=== PATIENT | female | born 1945 | race Caucasian/White ===

== ENCOUNTER 2018-07-27 18:25 | Inpatient (IN) | payer OTHER ==
[~2018-07-27] VITALS: Ht 154.9 cm; Wt 88.5 kg
[2018-07-27 18:26] VITALS: BP 205/90
[2018-07-27] MEDS ORDERED: JANUMET XR 1001 EACH PO (18:34)
[2018-07-27] MEDS ORDERED: ARIMIDEX1 MG PO (18:34)
[2018-07-27] MEDS ORDERED: MAGOX 400400 MG PO (18:34)
[2018-07-27] MEDS ORDERED: COZAAR 25 MG TA25 M2 PO (18:35)
[2018-07-27] MEDS ORDERED: SYNTHROID125 MC1 PO (18:35)
[2018-07-27] MEDS ORDERED: TRELEGY ELLIPT1 EACH (18:35)
[2018-07-27] MEDS ORDERED: AMARYL4 MG PO (18:35)
[2018-07-27] MEDS ORDERED: LIPITOR 20 MG T20 M1 PO (18:36)
[2018-07-27] MEDS ORDERED: ASPIR 8181 MG PO (18:36)
[2018-07-27] MEDS ORDERED: HYDROCHLOROTH12.5 M1 PO (18:36)
--- NOTE | 2018-07-27 21:00 | NUR ---
pt arrived to icu unit @ 2036 on 2L o2. pt able to move over to bed on her own. sob with excretion. stated she has had a cough for last 3+weeks none porductive. pt sounds congested. tachy on monitor. bp wnl. paged pulmonary, orders received will keep pt NPO after midnight, possible bronch in A.M. pt denies chest pain, n&v. no pain. family at bedside, updated on care of plain. voiced understanding. will continue to monitor.
[2018-07-27 21:46] LABS: CREATININE 1.2 mg/dL (0.6-1.3); POTASSIUM 4.2 mmol/L (3.5-5.1)
[2018-07-27 21:47] LABS: CALCIUM 9.6 mg/dL (8.5-10.1)
[2018-07-27 21:53] LABS: APTT 27.1 Seconds (25.0-31.3); PROTIME 10.7 Seconds (9.20-11.50)
[2018-07-27 22:00] VITALS: BP 121/66
[2018-07-27 22:00] LABS: TOTAL BILIRUBIN 0.3 mg/dL (<0.1-1.0)
[2018-07-27 22:01] LABS: ALBUMIN 3.2 g/dL (3.4-5.0); TOTAL PROTEIN 7.3 g/dL (6.4-8.2)
[2018-07-27 22:11] LABS: MAGNESIUM 1.5 mg/dL (1.8-2.4); PHOSPHORUS* 3.3 mg/dL (2.5-4.9)
[2018-07-28] VITALS (17 sets, daily range): BP systolic 104–147; BP diastolic 46–79
[2018-07-28 04:05] LABS: HEMATOCRIT 32.8 % (37.0-47.0); HEMOGLOBIN 11.3 gm/dL (12.0-15.0); MCH 29.4 pg (26.0-34.0); MCHC 34.5 g/dL (28.0-37.0); MCV 85.1 fL (80.0-100.0); MPV 8.2 fl. (7.2-11.1); RBC 3.86 mil/uL (4.20-5.00); RDW-CV 13.5 % (10.5-14.5); WBC 7.1 thou/uL (4.0-11.0)
[2018-07-28 04:15] LABS: INR 1.1; PROTIME 10.9 Seconds (9.20-11.50)
[2018-07-28 04:43] LABS: ALBUMIN 2.9 g/dL (3.4-5.0); CALCIUM 9.5 mg/dL (8.5-10.1); CREATININE 1.3 mg/dL (0.6-1.3); MAGNESIUM 1.8 mg/dL (1.8-2.4); POTASSIUM 4.1 mmol/L (3.5-5.1); TOTAL BILIRUBIN 0.4 mg/dL (<0.1-1.0); TOTAL PROTEIN 6.9 g/dL (6.4-8.2)
--- NOTE | 2018-07-28 06:35 | NUR ---
patient progressing towards goals. no acute hemodynamic changes overnight. pt ramains on 2L o2 sat 96-99%. has been able to sleep most of the night. pt has no current concerns at this time. will continue to monitor.
--- NOTE | 2018-07-28 14:58 | NUR ---
07/28 DAYS: Bronch completed at bedside, successful. See chart for procedure and vital signs. Patient post procedure breathing and feels better. x1 dose of IV mag given. Home meds restarted. B.S. high with steriods dose, oral meds restarted and continuing sliding scale for now. Patient is tachy with iv steriods with rates up to 140. IVF decreased to 50ml/hr. Weaned to room air
[2018-07-29] VITALS: BP 135/70
[2018-07-29 03:59] LABS: HEMATOCRIT 32.2 % (37.0-47.0); HEMOGLOBIN 10.8 gm/dL (12.0-15.0); MCH 29.2 pg (26.0-34.0); MCHC 33.6 g/dL (28.0-37.0); MPV 8.5 fl. (7.2-11.1); RBC 3.7 mil/uL (4.20-5.00); RDW-CV 13.8 % (10.5-14.5); WBC 15.8 thou/uL (4.0-11.0)
[2018-07-29 04:00] VITALS: BP 120/70
[2018-07-29 04:28] LABS: CALCIUM 8.8 mg/dL (8.5-10.1); CREATININE 1.4 mg/dL (0.6-1.3); MAGNESIUM 2.1 mg/dL (1.8-2.4); POTASSIUM 4.3 mmol/L (3.5-5.1)
--- NOTE | 2018-07-29 06:22 | NUR ---
pt progressing towards goals. now tele per dr. cruz. pt had no acute hemodynamic changes overnight. she did have a few coughing spasms pt stated she was able to cough up phlegm. pt able to sleep most of the night. pt goals are to be discharged this a.m she states she is ready to go home. will continur to monitor.
[2018-07-29 08:00] VITALS: BP 151/77
[2018-07-29] MEDS ORDERED: ARIMIDEX PO (10:36)
[2018-07-29 10:40] VITALS: BP 120/70
--- NOTE | 2018-07-29 12:02 | NUR ---
ASSESSMENT CHARTED. AFEBRILE. PT TELE STATUS. MORNING MEDS GIVEN. PT DENIES ANY PAIN OR TROUBLE BREATHING AT THIS TIME. PT DISCHARGED TODAY AT 1100. DISCHARGE PAPERWORK GIVEN. ALL QUESTIONS ANSWERED. IV TAKEN OUT. SCRIPTS GIVEN. PT LEFT UNIT VIA WHEELCHAIR AT 1100.
--- NOTE | 2018-07-30 12:06 | PROC ---
[facility] [address] [place] [address] PROCEDURE REPORT Name: ISRRAEL JAMSE Room: [address] IN M.R.#: [id number] Admission: 07/27/18 Attend Phys: Daniel Ca, Discharge: 07/29/18 Date of : 47 Report #: [id number] THIS REPORT FOR: //name// CC: Madyson Smith [employer] Daniel Ca MD DATE OF SERVICE: 07/28/2018 Bronchoscopy note with washings on the foreign body aspiration. ATTENDING PHYSICIAN: Daniel Ca MD. PREOPERATIVE DIAGNOSIS: Right lower lobe foreign body. POSTOPERATIVE DIAGNOSIS: Right lower lobe foreign body. Piece of gum oblong and right lower lobe bronchus extracted after third attempt in total. No intrabronchial lesions. Vocal cords oppose normally. Otherwise, normal anatomy. COMPLICATIONS: None. SPECIMENS: Right lower lobe bronchial wash. CLINICAL SUMMARY: The patient is a 73-year-old female, prior smoker with moderate COPD. She was chewing a piece of gum while talking on the phone yesterday. She had a coughing jag and she aspirated the piece of gum. It was not seen on chest x-ray, was seen on CT of the chest from [facility]. Bronchoscopy is indicated to evaluate for endobronchial lesion to obtain specimens and remove foreign body if present. Indications, benefits, risks of bronchoscopy, possible biopsy were explained to the patient. She understood and agreed. Informed consent was obtained. Prior to procedure, the patient's physical exam showed a few rhonchi, no wheezing. CV shows sinus tachycardia with heart rate of 110 and her sats were fine on 2 liters at 96%. Appropriate verbal timeout was taken as per correct procedure for the correct patient. Premedication consisted of meperidine 50 mg, Robinul 0.1 mg IM and then Versed 4 mg slow IV push pre and intraoperatively in 2 mg increments. O2 sats stayed above 93% throughout the procedure. The patient was edentulous. A flexible fiberoptic bronchoscopy carried out via oral tracheal route since the possibility of extracting a foreign body obstruction was considered. The oropharynx was normal. The vocal cords oppose normally. Trachea and rose were normal. Rose [place] [address] PROCEDURE REPORT Name: ISRRAEL JAMES Room: [address] IN [facility].#: [id number] Admission: 07/27/18 Attend Phys: Daniel Ca, Discharge: 07/29/18 Date of : 47 Report #: [id number] normal without any endobronchial lesions or mucosal abnormalities. Right lung showed a normal right upper lobe and the right lower lobe. At the lateral posterior basilar segment was a foreign body. Appeared to be a piece of gum, it was friable to some degree, but it came out in toto. It was too long for the basket, so we used biopsy forceps. First two attempts, it would get caught up on the vocal cords and go back down the right lower lobe. On the third attempt, we got it up and out into her posterior pharynx and went back in one more time and then took it out of her right parapharyngeal space. It was in total. It was a piece of gum. We did not send it for pathology. We did get a bronchial wash for Gram stain and C and S since she had had a cough for three weeks for culture prior to extracting the piece of gum. The patient did well. Her coughing decreased. She has a little bit of wheezing postoperatively. We will give another set of breathing treatments, probably watch her for a day or so and then, she can be discharged in 24 hours. She can call the office for the sputum results in 4-5 days. We may need to workup for speech language pathology and make sure she does not have chronic aspiration. I told her to slow down to be quite careful if she is chewing gum or chewing anything while she has her dentures in. No complications to the above procedure for bronchial foreign body. <ELECTRONICALLY SIGNED> By: Isabelle Fallon MD 07/30/18 1206 [id number] Dee MD /nt
--- NOTE | 2018-07-30 12:06 | CON ---
[address] [address] CONSULTATION Name: ISRRAEL JAMES Room: [address] IN .R.#: [id number] Admission: 07/27/18 Attend Phys: Daniel Ca, Discharge: 07/29/18 Date of : 47 Report #: [id number] THIS REPORT FOR: //name// CC: Madyson Smith [facility] Daniel Ca MD DATE OF SERVICE: 07/28/2018 ATTENDING PHYSICIAN: Daniel Ca MD. LOCATION: The patient is located in ICU bed 5. INDICATION FOR CONSULTATION: COPD, cough, bronchospasm, possible foreign body in right lower lobe bronchus. CLINICAL SUMMARY: The patient is a 73-year-old female, prior smoker, who was transferred from [place], [place] accepted by Dr. Ca yesterday afternoon. The patient was talking on the phone late yesterday morning, early yesterday afternoon. States she was just talking on the phone. She had a coughing spell, thinks she aspirated a piece of gum. It was a stick of gum. She could not remember what kind it was. She did not think she swallowed it. She has had a mild cough since then. She has been having a cough for about the last 3 weeks without any hemoptysis. She does have a recent history of breast CA over the last year or two that she is on hormonal therapy for. She does have some moderate COPD, but she is not oxygen dependent and she is not steroid dependent. She does take nebulizers at home. She is chronically short of breath going up flight of stairs. She denies having frequent episodes of bronchitis requiring antibiotics or steroids. The patient can talk to me actually in full sentences today and states if she does not take a deep breath, she does not cough. She has been kept n.p.o. for possible fiberoptic bronchoscopy today. She has never had a bronchoscopy before. PAST MEDICAL HISTORY: She has had malignant melanoma removed from her left lower leg. She had a breast cancer in 2017 with a lumpectomy. She has had a previous thyroidectomy. She has had hypertension, diabetes mellitus, moderate COPD for the past 4-5 years. ALLERGIES: She has no known medical allergies. OUTPATIENT MEDICATIONS: Included albuterol nebulizer treatments 2-4 times a day, metformin 1000 mg once daily, Arimidex 1 mg daily. She is on Trelegy Ellipta 100/62.5/25 one puff daily, previously was on Advair, no longer on Advair. Glyburide is 4 mg daily and levothyroxine is mcg daily, losartan is 50 mg p.o. daily, hydrochlorothiazide is 12.5 mg daily and aspirin is [address] [place] [address] CONSULTATION Name: ISRRAEL JAMES Room: [address]#: [id number] Admission: 07/27/18 Attend Phys: Daniel Ca, Discharge: 07/29/18 Date of : 47 Report #: [id number] daily, atorvastatin is 20 mg daily. She is on IV Solu-Medrol. She has received a couple of doses and was on I believe IV antibiotics, Zosyn piperacillin 3.375 grams IV every 8 hours. Has received one dose of Lovenox. Current oxygen dose is 2 liters with sats of 96%. FAMILY HISTORY: Positive for hypertension. SOCIAL HISTORY: She is and lives in outside [place], [place], actually lives in [place], [place] and with her , Cy. She has a prior 50-60-pack year history of smoking. She smoked for 40 years. She quit about 10 years ago. Denies any alcohol or illicit drug use. REVIEW OF SYSTEMS: A 14-point review of systems reviewed and negative except for pertinent positives noted in HPI. States she has had a cough for 3-4 weeks, has not had any hemoptysis. No unexplained weight loss, fever, chills or sweats. She was not drinking when she aspirated the gum and states she has never had problems with aspiration before. PHYSICAL EXAMINATION: GENERAL: A 73-year-old female in no acute distress and talking to me in full sentences without coughing. VITAL SIGNS: Blood pressure was 130/70, heart rate is 84, respirations were 16, and temperature was 36.7 degrees. She is 5 feet 4 inches tall, weight is 88 kilograms or 208 pounds, BMI is 37. Again, saturation on 2 liters is 96%. HEENT: Unremarkable. Pharynx is clear, inducing gag reflex. NECK: Supple, without nodes. No increase in jugular venous pressure. CHEST: Reveals diminished breath sounds without wheeze or rhonchi. There is no unilateral wheeze, right or left. No stridor is noted. No use of accessory muscles. CARDIOVASCULAR: Regular rate and rhythm without murmur, gallop or rub. Heart rate is 88. ABDOMEN: Obese without masses or megaly. EXTREMITIES: SCDs are in place. No cyanosis, clubbing or edema. NEUROLOGIC: Grossly intact. She moves all fours to commands and she can move around the bed without problems. LABORATORY DATA: From 07/28/2018 shows hemoglobin 11, white count 7100, platelets are 224,000, with previously normal differential. Sodium is 138, potassium is 4.1, chloride is 103, BUN is 18, creatinine 1.3, glucose is between 284 and 367. Magnesium was slightly low at 1.5, is now repeat at 1.8. LFTs within normal limits. Alkaline phosphatase slightly elevated at 174, then 120 and albumin is 2.9. No ABGs noted. Chest x-ray from this morning just shows mild COPD and hyperinflation. I do not see any lung masses or particulate matter in the right or left mainstem. I did look at the film from [facility]. We did finally get it to upload on our computer PAC system. On the mediastinal windows, there are no masses or lesions. [facility] [place] [address] CONSULTATION Name: ISRRAEL JAMES Room: [address] [place] [facility].#: [id number] Admission: 07/27/18 Attend Phys: Daniel Ca, Discharge: 07/29/18 Date of : 47 Report #: [id number] hyperinflation is noted. No mediastinal adenopathy. Heart size was normal. When I checked to the lung windows, there appears to be either a mucus plug or possibly a foreign body or piece of gum in the right mainstem going down to the right lower lobe bronchus at the bifurcation there. It is about 3-4 cm distal from the issac. Left lung was clear and the left bronchus was opened. No mass lesions or tumors otherwise were noted. IMPRESSION: 1. Possible foreign body aspiration in the right lower lobe mainstem bronchus, could be a piece of gum, could be mucus plugging. 2. Moderate chronic obstructive pulmonary disease, not severe. 3. Episode of aspiration, etiology unclear, may need a swallow study and further workup. 4. History of breast carcinoma, status post lumpectomy on hormonal therapy. PLAN: At this time, the patient is edentulous. We will take out her upper dentures and may use a bite block. We will go orally route for bronchoscopy in case we need to pull the piece of gum out of the throat. Much easier than doing it trying to pull it out through the nasopharynx. Hopefully, we will see and get a basket or biopsy forceps if it is a piece of gum. If it is a mucus plug, we will try and break it up and get it to come out. She has had previous cough and may check a sputum culture while we were down there and make sure that is stable. She has had no history of TB or other fungal diseases from what she has told me. We will do the bronchoscopy here in the ICU in the next hour or two this Sunday morning and if it proves to be difficult, may have to transfer to a higher level including either [facility] and/or at [facility]. Hopefully, we can take care of her issues here and then caution her about chewing gum and talking too much at the same time. This has been a 37-minute critical care consult. <ELECTRONICALLY SIGNED> By: Isabelle Fallon MD 07/30/18 1206 [id number] Dee MD /rhianna
== END 2018-07-29 11:15 | disposition home or self-care (01) | DRG 205 ==
LOC: M.ERS 18:25 → M.TBA-ER 18:48 → M.ICU 18:48
PROVIDERS: Internal Medicine Critical Care Medicine; ADMIT Family Medicine
PROC: 0BC68ZZ Extirpation of Matter from Right Lower Lobe Bronchus, Via Natural or Artificial Opening Endoscopic (ICD-10-PCS; principal; 2018-07-28)
DX: T17.590A Other foreign object in bronchus causing asphyxiation, initial encounter (principal); R65.11 Systemic inflammatory response syndrome (SIRS) of non-infectious origin with acute organ dysfunction; N17.9 Acute kidney failure, unspecified; E11.9 Type 2 diabetes mellitus without complications; I16.0 Hypertensive urgency; E66.9 Obesity, unspecified; I10 Essential (primary) hypertension; X58.XXXA Exposure to other specified factors, initial encounter; J44.9 Chronic obstructive pulmonary disease, unspecified; E83.42 Hypomagnesemia; R00.0 Tachycardia, unspecified; Z79.82 Long term (current) use of aspirin; Z79.899 Other long term (current) drug therapy; Z79.84 Long term (current) use of oral hypoglycemic drugs; Z82.49 Family history of ischemic heart disease and other diseases of the circulatory system; Z85.3 Personal history of malignant neoplasm of breast; Z87.891 Personal history of nicotine dependence; Z68.36 Body mass index [BMI] 36.0-36.9, adult; Y93.89 Activity, other specified; Y92.89 Other specified places as the place of occurrence of the external cause; Y99.8 Other external cause status